=== PATIENT | female | born 1995 | race Caucasian/White ===

== ENCOUNTER 2019-07-13 20:48 | Observation (INO) | payer OTHER ==
[2019-07-13] MEDS ORDERED: EPINEPHrine/PF 1 MG/1 ML (1:1,000) AMPULE ONE (20:56)
[2019-07-13] MEDS ORDERED: methylPREDNISolone NA SUCC 125 MG/2 ML VIAL ONE (20:56)
[2019-07-13 20:58] VITALS: BMI 27.4
[2019-07-13] MEDS ORDERED: methylPREDNISolone NA SUCC 125 MG/2 ML VIAL IVPUSH ONE (20:58)
[2019-07-13] MEDS ORDERED: FAMOTIDINE 20 MG/50 ML IVPB 20 MG/50 ML MG IVPB ONE (20:58)
[2019-07-13] MEDS ORDERED: EPINEPHrine/PF 1 MG/1 ML (1:1,000) AMPULE IM ONE (21:00)
[2019-07-13] MEDS ORDERED: SODIUM CHLORIDE 1,000 ML IV STA (21:01)
[2019-07-13] MEDS ORDERED: ONDANSETRON 4 MG/2 ML VIAL IVPUSH ONE (21:01)
--- NOTE | 2019-07-13 21:02 | PDOC ---
Attending Attestation - Resident Resident Name: Rubia Brand - ED Attending Attestation I have performed the following: I have examined & evaluated the patient, The case was reviewed & discussed with the resident, I agree w/resident's findings & plan - HPI HPI: 07/13/19 21:45 see resident hpi - Physicial Exam PE: 07/13/19 21:45 agree with resident exam - Medical Decision Making 07/13/19 21:48 24 yo female with severe facial swelling and diffuse hives consistent with acute ALLERGIC reaction likely to recently eaten shrimp Patient given Benadryl Pepcid subcutaneous epinephrine and Solu-Medrol on arrival On reevaluation at 9:45 PM swelling and hives have greatly improved Due to severity of reaction as well as vomiting in the emergency department patient will be held on medical service for observation
--- NOTE | 2019-07-13 21:04 | PDOC ---
History of Present Illness - General Chief Complaint: Allergic Reaction Stated Complaint: ALLERGIC REACTION Time Seen by Provider: 07/13/19 21:02 Past History - Past Medical History Allergies/Adverse Reactions: Allergies Allergy/AdvReac Type Severity Reaction Status Date / Time Fish Containing Products Allergy Verified 07/13/19 20:58 Home Medications: Ambulatory Orders NK [No Known Home Medication] 04/05/16 COPD: No - Suicide/Smoking/Psychosocial Hx Smoking History: Never smoked Hx Alcohol Use: No Drug/Substance Use Hx: No Substance Use Type: None *Physical Exam - Vital Signs Last Vital Signs Temp Pulse Resp BP Pulse Ox 150 H 30 H 0/0 L 100 07/13/19 20:56 07/13/19 20:56 07/13/19 20:56 07/13/19 20:56 ED Treatment Course - LABORATORY CBC & Chemistry Diagram: 07/13/19 22:00 07/13/19 22:00 Medical Decision Making - Medical Decision Making HPI: 24yo F with no significant PMH presenting with allergic reaction. Patient states she had seafood for dinner including calamari and shrimp after which she became very hot and flushed and her lips and tongue became swollen. She reports she had an allergic reaction (worse than today's) to seafood a number of years ago but was never told by a physician to avoid seafood. Sometimes she will feel symptomatic after eating seafood and will self-treat with benadryl. Patient with nausea and episode of vomiting while in the ED. Feeling better after receiving medications in the ED. Denies new clothing, animal/environmental exposures, or changes in medicines. No throat pain, chest pain, or trouble breathing. PCP: does not remember the name ROS: Constitutional: +flushed, +feels hot HEENT: +tongue swelling, +lip swelling Cardiovascular: no chest pain, no palpitations Respiratory: no cough, no shortness of breath Gastrointestinal: no abdominal pain, +vomiting Genitourinary: no dysuria, no hematuria Musculoskeletal: no myalgia, no arthralgia Skin: no rash, no itching Neurologic: no headache, no weakness PE: General: Awake, alert, and fully oriented, in no acute distress Head: No signs of trauma Eyes: EOMI, sclera anicteric ENT: Moist mucus membranes, lips and tongue look visibly swollen Neck: Normal ROM, supple Lungs: Lungs clear, Normal breath sounds Cardio: Regular rhythm, S1 and S2 present Abdomen: Soft, nontender. No guarding, no rebound, no masses Extremities: Normal range of motion, Distal pulses present SKIN: Warm, Dry, normal turgor Neurologic: Cranial nerves II through XII grossly intact. Normal speech ED Course/MDM: DDX including but not limited to allergic reaction, vasovagal reaction, angioedema, intoxication, infection Epi Solu-medrol Benadryl Pepcid Zofran Fluids 07/13/19 21:03 EKG: rate 111, QTc 473, sinus tachycardia CBC WBC 12.3 K/mm3 (4.0-10.0) H 07/13/19 22:00 RBC 4.29 M/mm3 (3.60-5.2) 07/13/19 22:00 Hgb 13.5 GM/dL (10.7-15.3) 07/13/19 22:00 Hct 40.1 % (32.4-45.2) 07/13/19 22:00 MCV 93.6 fl (80-96) 07/13/19 22:00 MCH 31.4 pg (25.7-33.7) 07/13/19 22:00 MCHC 33.6 g/dl (32.0-36.0) 07/13/19 22:00 RDW 12.8 % (11.6-15.6) 07/13/19 22:00 Plt Count 331 K/MM3 (134-434) 07/13/19 22:00 MPV 7.7 fl (7.5-11.1) 07/13/19 22:00 Absolute Neuts (auto) 7.4 K/mm3 (1.5-8.0) 07/13/19 22:00 Neutrophils % 60.6 % (42.8-82.8) 07/13/19 22:00 Lymphocytes % 33.7 % (8-40) 07/13/19 22:00 Monocytes % 4.5 % (3.8-10.2) 07/13/19 22:00 Eosinophils % 0.9 % (0-4.5) 07/13/19 22:00 Basophils % 0.3 % (0-2.0) 07/13/19 22:00 Nucleated RBC % 0 % (0-0) 07/13/19 22:00 Mild leukocytosis CMP Sodium 141 mmol/L (136-145) 07/13/19 22:00 Potassium 2.7 mmol/L (3.5-5.1) L* 07/13/19 22:00 Chloride 108 mmol/L (98-107) H 07/13/19 22:00 Carbon Dioxide 22 mmol/L (21-32) 07/13/19 22:00 Anion Gap 12 MMOL/L (8-16) 07/13/19 22:00 BUN 12.1 mg/dL (7-18) 07/13/19 22:00 Creatinine 0.7 mg/dL (0.55-1.3) 07/13/19 22:00 Est GFR (CKD-EPI)AfAm 141.54 07/13/19 22:00 Est GFR (CKD-EPI)NonAf 122.12 07/13/19 22:00 Random Glucose 137 mg/dL (74-106) H 07/13/19 22:00 Calcium 7.8 mg/dL (8.5-10.1) L 07/13/19 22:00 Total Bilirubin 0.2 mg/dL (0.2-1) 07/13/19 22:00 AST 25 U/L (15-37) 07/13/19 22:00 ALT 23 U/L (13-61) 07/13/19 22:00 Alkaline Phosphatase 42 U/L (45-117) L 07/13/19 22:00 Total Protein 6.6 g/dl (6.4-8.2) 07/13/19 22:00 Albumin 3.2 g/dl (3.4-5.0) L 07/13/19 22:00 Serum , Qual Negative 07/13/19 22:00 K is 2.7 Ordered 40meq po KCl as patient is no longer nauseous and is able to tolerate po negative 07/13/19 22:41 Pending Xray Patient's relative, Kurt, wants to leave his phone number, 07/13/19 23:06 CXR without acute pathology, my impression 07/13/19 23:[address] Julien who accepted patient for admission under Dr. Richardson 07/14/19 00:21 *DC/Admit/Observation/Transfer Diagnosis at time of Disposition: Anaphylactic reaction Qualifiers: Encounter type: initial encounter Qualified Code(s): T78.2XXA - Anaphylactic shock, unspecified, initial encounter - Discharge Dispostion Condition at time of disposition: Guarded Decision to Admit order: Yes - Referrals - Patient Instructions - Post Discharge Activity
[2019-07-13 22:09] LABS: BASO % 0.3 % (0-2.0); EOS % 0.9 % (0-4.5); HEMATOCRIT 40.1 % (32.4-45.2); HEMOGLOBIN 13.5 GM/dL (10.7-15.3); LYMPH % 33.7 % (8-40); MCH 31.4 pg (25.7-33.7); MCHC 33.6 g/dl (32.0-36.0); MEAN CELL VOLUME 93.6 fl (80-96); MEAN PLT VOLUME 7.7 fl (7.5-11.1); MONO % 4.5 % (3.8-10.2); NEUT % 60.6 % (42.8-82.8); PLATELET COUNT 331 K/MM3 (134-434); RBC 4.29 M/mm3 (3.60-5.2); RDW 12.8 % (11.6-15.6); WHITE BLOOD COUNT 12.3 K/mm3 (4.0-10.0)
[2019-07-13 22:36] LABS: ALBUMIN 3.2 g/dl (3.4-5.0); BILIRUBIN,TOTAL 0.2 mg/dL (0.2-1); BLOOD UREA NITROGEN 12.1 mg/dL (7-18); CALCIUM 7.8 mg/dL (8.5-10.1); CREATININE 0.7 mg/dL (0.55-1.3); TOT PROT 6.6 g/dl (6.4-8.2)
[2019-07-13 22:38] LABS: POTASSIUM 2.7 mmol/L (3.5-5.1)
[2019-07-13] MEDS ORDERED: POTASSIUM CHLORIDE TABS 10 MEQ TABLET.ER (FP) PO ONE (22:40)
[2019-07-13] MEDS ORDERED: POTASSIUM CHLORIDE TABS 10 MEQ TABLET.ER (FP) ONE (22:58)
--- NOTE | 2019-07-14 01:54 | HP ---
CHIEF COMPLAINT: Swelling of the face, lips, hands, legs with diffuse itching after consuming shrimp and calamari a few hours before presenting to the ER PCP: None HISTORY OF PRESENT ILLNESS: This is a 24 year old female with no significant PMH. She was brought to the ER from home by her family after she developed swelling of the face, lips, hands, legs with diffuse itching shortly after consuming shrimp and calamari for dinner around 8PM. She states that she felt very warm, but did not have difficulty breathing other than some SOB which she started experiencing once she arrived at the ER. She took some Benadryl at home before arriving at the ER. She had similar symptoms after consuming shrimp a few years ago, and was hospitalized at [facility]. At the time, she had developed swelling of the face, legs, hands, and had trouble breathing but was not intubated. She states that she was not advised to avoid seafood at the time. Other than these two episodes, she has had multiple episodes of rashes without swelling after consuming shrimp in past, but these episodes have resolved after taking Benadryl. She also states that there have been february times when she has consumed shrimp without any resulting swelling or rash. She does not complain of any recent illnesses, sick contacts, fever, chills, dizziness, light headedness, SOB, chest pain, palpitations, nausea, vomiting, diarrhea, constipation, dysuria, or hematuria. ER course was notable for: (1) Benadryl 50mg, Epi 1000mcg, Solu-Medrol 125mg (2) K 2.7, KCl 40mg given (3) WBC 12.3 Recent Travel: None PAST MEDICAL HISTORY: None PAST SURGICAL HISTORY: None Social History: Smoking: denies Alcohol: few drinks/month Drugs: denies Family History: No history of allergy in the family Allergies Fish Containing Products Allergy (Verified 07/13/19 20:58) HOME MEDICATIONS: Home Medications Medication Instructions Recorded NK [No Known Home Medication] 04/05/16 REVIEW OF SYSTEMS CONSTITUTIONAL: Absent: fever, chills, diaphoresis, generalized weakness, malaise, loss of appetite, weight change HEENT: Absent: rhinorrhea, nasal congestion, throat pain, throat swelling, difficulty swallowing, mouth swelling, ear pain, eye pain, visual changes CARDIOVASCULAR: Absent: chest pain, syncope, palpitations, irregular heart rate, lightheadedness , peripheral edema RESPIRATORY: Absent: cough, shortness of breath, dyspnea with exertion, orthopnea, wheezing, stridor, hemoptysis GASTROINTESTINAL: Absent: abdominal pain, abdominal distension, nausea, vomiting, diarrhea, constipation, melena, hematochezia GENITOURINARY: Absent: dysuria, frequency, urgency, hesitancy, hematuria, flank pain, genital pain MUSCULOSKELETAL: Absent: myalgia, arthralgia, joint swelling, back pain, neck pain SKIN: Edema Absent: rash, itching, pallor HEMATOLOGIC/IMMUNOLOGIC: Absent: easy bleeding, easy bruising, lymphadenopathy, frequent infections ENDOCRINE: Absent: unexplained weight gain, unexplained weight loss, heat intolerance, cold intolerance NEUROLOGIC: Absent: headache, focal weakness or paresthesias, dizziness, unsteady gait, seizure, mental status changes, bladder or bowel incontinence PSYCHIATRIC: Absent: anxiety, depression, suicidal or homicidal ideation, hallucinations. PHYSICAL EXAMINATION Vital Signs - 24 hr 07/13/19 07/13/19 07/13/19 20:56 22:30 22:32 Temperature 98.0 F Pulse Rate 150 H Pulse Rate [ 98 H Right Radial] Respiratory 30 H 20 Rate Blood Pressure 0/0 L Blood Pressure 118/65 [Right Arm] O2 Sat by Pulse 100 96 Oximetry (%) GENERAL: Awake, alert, and fully oriented, in no acute distress. HEAD: Swelling of lips EYES: Pupils equal, round and reactive to light, extraocular movements intact, sclera anicteric, conjunctiva clear. No lid lag. EARS, NOSE, THROAT: Ears normal, nares patent, oropharynx clear without exudates. Moist mucous membranes. NECK: Normal range of motion, supple without lymphadenopathy, JVD, or masses. LUNGS: Breath sounds equal, clear to auscultation bilaterally. No wheezes, and no crackles. No accessory muscle use. HEART: Regular rate and rhythm, normal S1 and S2 without murmur, rub or gallop. ABDOMEN: Soft, nontender, not distended, normoactive bowel sounds, no guarding, no rebound, no masses. No hepatomegaly or splenomegaly. MUSCULOSKELETAL: Normal range of motion at all joints. No bony deformities or tenderness. No CVA tenderness. UPPER EXTREMITIES: edematous swelling of hands LOWER EXTREMITIES: edematous swelling of hands NEUROLOGICAL: Cranial nerves II-XII intact. Normal speech. Normal gait. PSYCHIATRIC: Cooperative. Good eye contact. Appropriate mood and affect. SKIN: scratch muhammad on arms and chest Laboratory Results - last 24 hr 07/13/19 07/13/19 07/13/19 22:00 22:00 22:00 WBC 12.3 H RBC 4.29 Hgb 13.5 Hct 40.1 MCV 93.6 MCH 31.4 MCHC 33.6 RDW 12.8 Plt Count 331 MPV 7.7 Absolute Neuts (auto) 7.4 Neutrophils % 60.6 Lymphocytes % 33.7 Monocytes % 4.5 Eosinophils % 0.9 Basophils % 0.3 Nucleated RBC % 0 Sodium 141 Potassium 2.7 L* Chloride 108 H Carbon Dioxide 22 Anion Gap 12 BUN 12.1 Creatinine 0.7 Est GFR (CKD-EPI)AfAm 141.54 Est GFR (CKD-EPI)NonAf 122.12 Random Glucose 137 H Calcium 7.8 L Total Bilirubin 0.2 AST 25 ALT 23 Alkaline Phosphatase 42 L Total Protein 6.6 Albumin 3.2 L Serum , Qual Negative ASSESSMENT/PLAN: This is a 24 year old female with no significant PMH. She was brought to the ER from home by her family after she developed swelling of the face, lips, hands, legs with diffuse itching shortly after consuming shrimp and calamari for dinner around 8PM. #Angioedema 2/2 seafood allergy - Swelling improved after benadryl, epi, and steroids in ER - Prednisone 40mg PO - Benadryl 25mg Q86 PRN - Will need to avoid seafood, keep an epi-pen, and visit an autocutter upon D/C #Leukocytosis - Likely reactive, no need for antibiotics at the moment - Continue to monitor #Hypokalemia - 2.7 - 40meq KCl given 2x - EKG shows no signs of hypokalemia - Continue to monitor #FEN - Monitor K - Clear liquid diet, advance as tolerated (no seafood) #DVT PE - Heparin 5000 SQ Visit type - Emergency Visit Emergency Visit: Yes ED Registration Date: 07/13/19 Care time: The patient presented to the Emergency Department on the above date and was hospitalized for further evaluation of their emergent condition. - New Patient This patient is new to me today: Yes Date on this admission: 07/14/19 - Critical Care Critical Care patient: No ATTENDING PHYSICIAN STATEMENT I saw and evaluated the patient. I reviewed the resident's note and discussed the case with the resident. I agree with the resident's findings and plan as documented. SUBJECTIVE: OBJECTIVE: ASSESSMENT AND PLAN:
[2019-07-14] MEDS ORDERED: diphenhydrAMINE HCL 25 MG CAPSULE (FP) PO SCH (03:15)
[2019-07-14] MEDS ORDERED: diphenhydrAMINE HCL 25 MG CAPSULE (FP) PO ONE (03:42)
--- NOTE | 2019-07-14 04:43 | PN ---
Teaching Attending Note Name of Resident: Jorge Smith ATTENDING PHYSICIAN STATEMENT I saw and evaluated the patient. I reviewed the resident's note and discussed the case with the resident. I agree with the resident's findings and plan as documented. SUBJECTIVE: 24 year old female previously healthy brought by her family after she developed swelling of the face, lips, hands, legs with diffuse itching shortly after consuming shrimp and calamari for dinner around 8PM. Denied respiratory distress or rashes. Feels better after meds given in ER- epipen, solumedrol, benadryl, ranitidine. Reports similar episode after eating shrimp a few years ago after eating shrimp. OBJECTIVE: Last Vital Signs Temp Pulse Resp BP Pulse Ox 98.0 F 80 20 104/62 97 07/13/19 22:32 07/14/19 03:53 07/14/19 03:53 07/14/19 03:53 07/14/19 03:53 gen- nad, heent- enlarged upper lip, no intraoral swelling, no edema neck supple chest clear skin - no rashes Abnormal Lab Results 07/13/19 07/13/19 22:00 22:00 WBC 12.3 H Potassium 2.7 L* Chloride 108 H Random Glucose 137 H Calcium 7.8 L Alkaline Phosphatase 42 L Albumin 3.2 L cxr reviewed ASSESSMENT AND PLAN: #Anaphylaxis/angioedema likely secondary to eating seafood- probably shrimp or calamari or both. Much improved after steroid, benadryl, epi-pen. VS stable. Good for med/surg. #Severe hypokalemia-2.7 check ekg if normal, can go to med/surg #leukocytosis -reactive -med/surg if no hypokalemia changes on ekg -monitor VS closely -supplement K+ -prednisone 40mg po daily -benadryl 25mg po q8hrs -clear liquid diet and adance as tolerated -counseled to avoid seafood - especially shrimp and calamari and to see supervisor cutting and sewing room -needs epipen upon discharge -monitor wbc, no antibiotics at this time -dvt ppx
[2019-07-14] MEDS ORDERED: HEPARIN NA (PORCINE) 5,000 UNITS/ML 1ML VIAL SQ SCH (06:00)
[2019-07-14] MEDS ORDERED: POTASSIUM CHLORIDE TABS 20 MEQ TABLET.ER (FP) PO ONE (06:18)
[2019-07-14] MEDS ORDERED: HEPARIN NA (PORCINE) 5,000 UNITS/ML 1ML VIAL ONE (06:24)
[2019-07-14] MEDS: diphenhydrAMINE HCL 25 MG CAPSULE (FP) PO SCH ×2 (06:51→12:27)
[2019-07-14] MEDS ORDERED: predniSONE 20 MG TABLET (UD) PO SCH (10:00)
[2019-07-14] MEDS ORDERED: PT OWN MED DRAWER 7, Y5N ONE (10:27)
[2019-07-14 10:51] LABS: CREATININE 0.9 mg/dL (0.55-1.3); MAGNESIUM 2.2 mg/dL (1.8-2.4); POTASSIUM 4.4 mmol/L (3.5-5.1)
--- NOTE | 2019-07-14 12:48 | PN ---
Teaching Attending Note Name of Resident: Eugenia Hahn ATTENDING PHYSICIAN STATEMENT I saw and evaluated the patient. I reviewed the resident's note and discussed the case with the resident. I agree with the resident's findings and plan as documented. SUBJECTIVE:asymptomatic. states she had tingling in her tongue in past when eating shellfish but never swelling like this in the past. symptoms all resolved. tolerated breakfast. sherwin CP, SOb, Fever, chills, N/V/C/D OBJECTIVE: Last Vital Signs Temp Pulse Resp BP Pulse Ox 98.0 F 80 20 104/62 97 07/13/19 22:32 07/14/19 03:53 07/14/19 08:36 07/14/19 03:53 07/14/19 08:36 General NAD HEENT mild swelling lateral to L eye with slight erythema. no swelling noted of lips or tongue or pharynx. no stridor no rashes CV S1 S2 RRR no murmur/rub/gallop Lungs CTA B/L no wheezing/rales/rhonchi ASSESSMENT AND PLAN: 24yo F with no pmh presented after anaphylactic reaction to eating shrimp 1. anaphylaxis- s/p epinephrine/solumedrol/pepcid/benadryl given in the ER. symptoms resolved. very minimal swelling of lateral face. will d/c with epipen, discussed on how to utilize it, medrol dose pack and benadryl prn. advised to avoid shellfish and follow up with pinked edge sewing machine operator for further workup and testing 2. hypokalemia- resolved 3. d/c home with recommendations and treatment. spoke with mother present at bedside. all questions answered. verbalized understanding and agreement
[2019-07-14 13:07] VITALS: BP 104/68; PULSE 57; TEMP 97.9
[2019-07-14 13:59] LABS: BASO % 0.1 % (0-2.0); HEMATOCRIT 39.5 % (32.4-45.2); MCH 31.3 pg (25.7-33.7); MCHC 33.1 g/dl (32.0-36.0); MEAN CELL VOLUME 94.8 fl (80-96); MEAN PLT VOLUME 8.3 fl (7.5-11.1); NEUT % 83.9 % (42.8-82.8); PLATELET COUNT 314 K/MM3 (134-434); RBC 4.16 M/mm3 (3.60-5.2); RDW 13.1 % (11.6-15.6); WHITE BLOOD COUNT 5.1 K/mm3 (4.0-10.0)
--- NOTE | 2019-07-14 14:05 | EKG ---
Test Reason : Blood Pressure : / mmHG Vent. Rate : 065 BPM Atrial Rate : 065 BPM P-R Int : 164 ms QRS Dur : 088 ms QT Int : 416 ms P-R-T Axes : 047 075 048 degrees QTc Int : 432 ms NORMAL SINUS RHYTHM NORMAL ECG WHEN COMPARED WITH ECG OF 13-JUL-2019 22:41, VENT. RATE HAS DECREASED BY 46 BPM NONSPECIFIC T WAVE ABNORMALITY NO LONGER EVIDENT IN INFERIOR LEADS NONSPECIFIC T WAVE ABNORMALITY NO LONGER EVIDENT IN ANTEROLATERAL LEADS Confirmed by ROSALINA TIWARI MD ([id number]) on 07/14/2019 2:04:40 PM Referred By: Confirmed By:ROSALINA TIWARI MD
--- NOTE | 2019-07-14 14:07 | EKG ---
Test Reason : Blood Pressure : / mmHG Vent. Rate : 111 BPM Atrial Rate : 111 BPM P-R Int : 168 ms QRS Dur : 092 ms QT Int : 348 ms P-R-T Axes : 046 076 033 degrees QTc Int : 473 ms SINUS TACHYCARDIA CANNOT RULE OUT ANTERIOR INFARCT , AGE UNDETERMINED ABNORMAL ECG NO PREVIOUS ECGS AVAILABLE Confirmed by TE HAMM, ROSALINA ([id number]) on 07/14/2019 2:07:13 PM Referred By: Confirmed By:ROSALINA TIWARI MD
== END 2019-07-14 14:00 | disposition home or self-care (01) ==
LOC: JER 20:48 → JERBED 23:15
PROVIDERS: ADMIT Internal Medicine; ATTEND Internal Medicine
PROC: 3E0333Z Introduction of Anti-inflammatory into Peripheral Vein, Percutaneous Approach (ICD-10-PCS; principal; 2019-07-13)
PROC: 3E0337Z Introduction of Electrolytic and Water Balance Substance into Peripheral Vein, Percutaneous Approach (ICD-10-PCS; 2019-07-13)
PROC: 3E033GC Introduction of Other Therapeutic Substance into Peripheral Vein, Percutaneous Approach (ICD-10-PCS; 2019-07-13)
PROC: 3E013GC Introduction of Other Therapeutic Substance into Subcutaneous Tissue, Percutaneous Approach (ICD-10-PCS; 2019-07-13)
DX: T78.02XA Anaphylactic reaction due to shellfish (crustaceans), initial encounter (principal); E87.6 Hypokalemia; Y92.9 Unspecified place or not applicable
CPT/HCPCS: 36415; 71045-TC-FY; 80048; 80053; 83735; 84703; 85025; 93005; 93010; 96361; 96365; 96372; 96375; 99285-25; G0378; J1644; J7030